=== PATIENT | female | born 1965 ===

== ENCOUNTER 2018-07-03 14:36 | Outpatient (CLI) | payer BC | END 2018-07-03 14:37 | disposition home or self-care (01) | LOC: BICMAMMO 14:36 | PROVIDERS: ATTEND Obstetrics & Gynecology | DX: Z12.31 Encounter for screening mammogram for malignant neoplasm of breast (principal); N64.89 Other specified disorders of breast | CPT/HCPCS: 77063; 77067 ==

== ENCOUNTER 2018-08-03 14:26 | Outpatient (CLI) | payer BC ==
--- NOTE | 2018-08-03 15:55 | ULT ---
SONOGRAM LEFT BREAST LIMITED: HISTORY: Abnormal mammogram. Focal asymmetry. FINDINGS: Sonographic evaluation of the lateral inferior aspect of the left breast in the region of mammographi c concern shows scattered fibroglandular densities. Ill-defined hypoechoic area. Widespread shadowi ng without focal mass. The patient reports that breast reduction surgery was performed in late 2015 after the most recent ma mmogram. This accounts for the scarring seen on mammography and sonography. IMPRESSION: BIRADS category 2. Benign findings. Suggest routine mammographic followup. POS: [facility]
== END 2018-08-03 14:27 | disposition home or self-care (01) ==
LOC: BICMAMMO 14:26
PROVIDERS: ATTEND Obstetrics & Gynecology
DX: R92.2 Inconclusive mammogram (principal); R92.1 Mammographic calcification found on diagnostic imaging of breast
CPT/HCPCS: G0279